=== PATIENT | female | born 1995 | race Asian ===

== ENCOUNTER 2024-09-17 21:15 | Emergency (ER) | payer SELFPAY ==
[2024-09-17 21:22] VITALS: BP 122/78
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
== END 2024-09-17 22:44 | disposition home or self-care (01) ==
LOC: EMR 21:15
PROVIDERS: EMERGENCY PHYSICIAN Emergency Medicine; FAMILY PHYSICIAN Internal Medicine
DX: S16.1XXA Strain of muscle, fascia and tendon at neck level, initial encounter (principal); V49.50XA Passenger injured in collision with unspecified motor vehicles in traffic accident, initial encounter
CPT/HCPCS: 99284; 70450; 72125